=== PATIENT | female | born 1965 | race Caucasian/White ===

== ENCOUNTER 2018-06-11 07:17 | Emergency (ER) | payer SELFPAY, OTHER | END 2018-06-11 08:02 | disposition left against medical advice (07) | LOC: E/R 08:02 | DX: Z53.21 Procedure and treatment not carried out due to patient leaving prior to being seen by health care provider (principal) ==

== ENCOUNTER 2018-06-13 13:49 | Emergency (ER) | payer OTHER | END 2018-06-13 16:26 | disposition home or self-care (01) | LOC: FTE 13:49 | DX: T81.40XA Infection following a procedure, unspecified, initial encounter (principal); F17.210 Nicotine dependence, cigarettes, uncomplicated; Y82.9 Unspecified medical devices associated with adverse incidents | CPT/HCPCS: 99283; Z7502 ==

== ENCOUNTER 2018-09-25 11:17 | Emergency (ER) | payer OTHER ==
[2018-09-25] MEDS ORDERED: HALOPERIDOL 5 MG INJ (11:35)
[2018-09-25] MEDS ORDERED: LORAZEPAM 2 MG INJ (11:37)
[2018-09-25] MEDS: HALOPERIDOL 5 MG INJ IM (11:40)
[2018-09-25] MEDS: LORAZEPAM 2 MG INJ IM (11:40)
[2018-09-25 12:31] LABS: ADD MAN DIFF? NO
[2018-09-25 12:34] LABS: BASOPHIL # 0.1 10^3/ul (0.0-0.1); BASOPHILS % 1.4 % (0.0-2.0); EOSINOPHILS # 0.1 10^3/ul (0.0-0.5); HEMATOCRIT 38.7 % (37.0-47.0); HEMOGLOBIN 12.9 g/dl (12.0-16.0); LYMPHOCYTES # 1.3 10^3/ul (0.8-2.9); LYMPHOCYTES % 36.3 % (15.0-51.0); MEAN CORPUSCULAR HEMOGLOBIN 30.7 pg (29.0-33.0); MEAN CORPUSCULAR HGB CONC 33.3 g/dl (32.0-37.0); MEAN CORPUSCULAR VOLUME 92.1 fl (82.0-101.0); MEAN PLATELET VOLUME 9.2 fl (7.4-10.4); MONOCYTE # 0.3 10^3/ul (0.3-0.9); MONOCYTES % 8.2 % (0.0-11.0); NEUTROPHIL # 1.9 10^3/ul (1.6-7.5); NEUTROPHILS % 50.8 % (39.0-77.0); PLATELET COUNT 320 10^3/UL (140-415); RED CELL DISTRIBUTION WIDTH 15.2 % (11.5-14.5)
[2018-09-25 12:34] LABS: WHITE BLOOD COUNT 3.6 10^3/ul (4.8-10.8)
[2018-09-25 12:57] LABS: ACETAMINOPHEN < 10.0 ug/ml (10.0-30.0); ALANINE AMINOTRANSFERASE 22 IU/L (13-69); ALBUMIN 4.5 g/dl (3.3-4.9); ALKALINE PHOSPHATASE 78 IU/L (42-121); ANION GAP 16 (5-13); ASPARTATE AMINO TRANSFERASE 44 IU/L (15-46); BILIRUBIN,INDIRECT 0.3 mg/dl (0-1.1); BILIRUBIN,TOTAL 0.3 mg/dl (0.2-1.3); BLOOD UREA NITROGEN 20 mg/dl (7-20); CALCIUM 9.7 mg/dl (8.4-10.2); CARBON DIOXIDE 20 mmol/L (21-31); CHLORIDE 104 mmol/L (97-110); CREATININE 0.73 mg/dl (0.44-1.00); Estimated GFR > 60 mL/min (>60); GLUCOSE 76 mg/dl (70-220); POTASSIUM 3.5 mmol/L (3.5-5.1); SALICYLATE < 1.0 mg/dl (5.0-30.0); SODIUM 140 mmol/L (135-144); TOTAL PROTEIN 7.5 g/dl (6.1-8.1)
[2018-09-25 13:57] LABS: ADD UMIC NO; UR ASCORBIC ACID NEGATIVE (NEGATIVE); UR BILIRUBIN (Dip) NEGATIVE (NEGATIVE); UR BLOOD (Dip) NEGATIVE (NEGATIVE); UR CLARITY CLEAR (CLEAR); UR COLOR YELLOW (YELLOW); UR GLUCOSE (Dip) NEGATIVE (NEGATIVE); UR KETONES (Dip) NEGATIVE (NEGATIVE); UR LEUKOCYTE ESTERASE (Dip) NEGATIVE Leu/ul (NEGATIVE); UR NITRITE (Dip) NEGATIVE (NEGATIVE); UR SPECIFIC GRAVITY (Dip) 1.013 (1.003-1.030); UR TOTAL PROTEIN (Dip) NEGATIVE (NEGATIVE); UR UROBILINOGEN (Dip) NEGATIVE (NEGATIVE)
[2018-09-25 14:19] LABS: BARBITURATES Negative (NEGATIVE); BENZODIAZEPINES Negative (NEGATIVE); CANNABINOIDS Positive (NEGATIVE); COCAINE Negative (NEGATIVE); OPIATES Negative (NEGATIVE)
[2018-09-25 14:31] LABS: AMPHETAMINE/METHAMPHETAMINE POSITIVE (NEGATIVE)
[2018-09-26] MEDS ORDERED: QUETIAPINE 100 MG TAB PO (21:00)
== END 2018-09-26 12:54 ==
LOC: E/R 11:17
DX: F29 Unspecified psychosis not due to a substance or known physiological condition (principal); R40.2252 Coma scale, best verbal response, oriented, at arrival to emergency department; R40.2362 Coma scale, best motor response, obeys commands, at arrival to emergency department; R40.2142 Coma scale, eyes open, spontaneous, at arrival to emergency department; F17.210 Nicotine dependence, cigarettes, uncomplicated
CPT/HCPCS: 36415; 80053; 80307; 81003; 85025; 96372; 99285-25

== ENCOUNTER 2019-01-21 08:58 | Emergency (ER) | payer OTHER ==
[2019-01-21] MEDS: ALBUTEROL 0.083% (NEB) 2.5 MG/3 ML AMP NEB (10:18)
[2019-01-21] MEDS: IPRATROPIUM (NEB) 0.5 MG/2.5 ML AMP NEB (10:18)
[2019-01-21] MEDS: METHYLPREDNISOLONE 125 MG INJ IM (10:24)
== END 2019-01-21 11:25 | disposition home or self-care (01) ==
LOC: FTE 08:58
DX: H66.003 Acute suppurative otitis media without spontaneous rupture of ear drum, bilateral (principal); J40 Bronchitis, not specified as acute or chronic; J01.00 Acute maxillary sinusitis, unspecified; Z87.891 Personal history of nicotine dependence
CPT/HCPCS: 71045; 87400; 87880; 94664; 96372; 99284-25

== ENCOUNTER 2019-01-28 22:57 | Emergency (ER) | payer SELFPAY, OTHER | END 2019-01-29 01:07 | disposition left against medical advice (07) | LOC: FTE 22:57 | DX: Z53.21 Procedure and treatment not carried out due to patient leaving prior to being seen by health care provider (principal) ==